=== PATIENT | male | born 1955 | race Caucasian/White ===

== ENCOUNTER → 2019-01-19 | Outpatient (CLI) | payer BC ==
[2019-01-19 09:17] LABS: CHOLESTEROL 173 mg/dL (<200); HDL CHOLESTEROL 52 mg/dL (>40); LDL CHOLESTEROL 101 mg/dL (<100); TC:HDL 3.3 Ratio (Not establshd); TRIGLYCERIDE 104 mg/dL (<150); VLDL 21 mg/dL (<40)
[2019-01-19 09:20] LABS: SERUM ASSESSMENT Clear
== END ==
LOC: M.LAB 08:37
PROVIDERS: Internal Medicine Cardiovascular Disease
DX: I25.10 Atherosclerotic heart disease of native coronary artery without angina pectoris (principal)

== ENCOUNTER → 2019-01-22 | Outpatient (CLI) | payer BC ==
--- NOTE | 2019-01-22 16:22 | CARDNUC ---
[place] [address] CARDIAC NUCLEAR IMAGING REPORT Name: BRENDA CAAL Room: [facility]#: [id number] Admission: 01/22/19 Attend Phys: Kalpesh Ny, Discharge: Date of : 53 Date of Service: 01/22/19 1622 Report #: [id number] THIS REPORT FOR: //name// APPROVED REPORT Imaging Protocol: Rest Tc-99m/Stress Tc-99m 1 day Study performed: 01/22/2019 09:35:16 Indication: increased calcium in arteries Patient Location: Out-Patient Stress Tech: Jo Ann Vigil Stress Nurse: Denisha Moran RN Ht: 5 ft 9 in Wt: 168 lbs BSA: 1.92 m2 BMI: 24.80 Medical History Medical History: cad Medications: asa-81 Allergies: nkda Cardiac Risk Factors: age, cad, tobacco Previous Cardiac Procedures: none Exercise History: Indeterminate Resting Data Rest SPECT myocardial perfusion imaging was performed in supine position 30 minutes following the intravenous injection of 10.5 mCi of Tc-99m Sestamibi. Time of rest injection: 07:55 The images were gated to evaluate regional wall motion and calculate left ventricular ejection fraction. Administration Route: IV Administration Site: Right Hand Pharmacologic Stress Pharmacologic stress test was performed by injecting Regadenoson 0.4 mg IV push over 10-15 seconds immediately followed by the intravenous injection of 33.0 mCi of Tc-99m Sestamibi. Time of stress injection: 09:55 Administration Route: IV Administration Site: Right Hand Heart Rate at time of stress injection: 107 bpm. Gated Stress SPECT was performed 40 minutes after stress injection. The images were gated to evaluate regional [place] [address] CARDIAC NUCLEAR IMAGING REPORT Name: AFUABRENDAIvania RUBIO Room: [facility]#: [id number] Admission: 01/22/19 Attend Phys: Kalpesh Ny, Discharge: Date of : 53 Date of Service: 01/22/19 1622 Report #: [id number] left ventricular ejection fraction. Prone imaging was performed. Stress Test Details Stress Test: Pharmacologic stress testing performed using 0.4 mg of regadenoson per 5 mL given IV over 10 seconds. Reason for pharmacologic stress test: a fib. HR Max Heart Rate (APMHR): 156 bpm Resting HR: 65 bpm Target HR (85% APMHR): 132 bpm Max HR Achieved: 107 bpm % of APMHR: 68 Recovery HR: 80 bpm HR response to stress: Normal HR response to stress BP Resting BP: 186/88 mmHg Max BP: 215/99 mmHg Recovery BP: 188/91 mmHg BP response to stress: Normal blood pressure response to stress. ECG Resting ECG: nsr Stress ECG: nsr ST Change: none Arrhythmia: none Recovery ECG: nsr Clinical Reason for Termination: Completed protocol Stress Symptoms: None Exercise duration: 0 min sec Exercise capacity: 1 METs Stress ECG Conclusion negative ecg Study Quality Study: Good Artifact: Mild Breast artifactIncreased GI uptake Lung Uptake: Normal Perfusion STRESS SPECT images show a small mild intensity inferior defect which is noted to be fixed when compared to the SPECT rest images. There is uniform uptake of tracer in all other segments[place] [address] CARDIAC NUCLEAR IMAGING REPORT Name: CAALBRENDA Room: [facility]#: [id number] Admission: 01/22/19 Attend Phys: Kalpesh Ny, Discharge: Date of : 53 Date of Service: 01/22/191621 Report #: [id number] normalization of the inferior defect indicating it is likely artifact. No reversible defects are seen. Images were reviewed using LiveIntent. Wall Motion normal all segments Nuclear Conclusion ECG Findings: negative for ischemia Clinical Findings: negative for ischemia Nuclear Findings: negative for ischemia Exercise Capacity: not assessed Left Ventricular Function: normal Risk Study: low Negative perfusion stress test for ischemia or infarct. Low risk study. <Conclusion> negative ecg <ELECTRONICALLY SIGNED> By: Dieter Fraga MD, [facility] 01/22/191621 21 21 Dieter Fraga MD, FACC /INF
== END ==
LOC: M.NUC
DX: I25.10 Atherosclerotic heart disease of native coronary artery without angina pectoris (principal); F17.200 Nicotine dependence, unspecified, uncomplicated